=== PATIENT | male | born 1980 | race Caucasian/White ===

== ENCOUNTER → 2018-09-10 | Outpatient (CLI) | payer BC ==
--- NOTE | 2018-09-10 16:07 | PCVCIMAG ---
APPROVED REPORT Study performed: 09/10/2018 14:45:44 Exam: Stress Echocardiogram Indication: Hyperlipidemia, Hypertension, elevated calcium score Patient Location: Echo lab Stress Nurse: Krystal Cedillo RN Status: routine Ht: 5 ft 8 in HR: 87 bpm BP: 122/80 mmHg Rhythm: NSR Medical History Medical History: Hyperlipidemia, HTN Exercise History: Physically active Procedure The patient underwent an Exercise Stress Test using the Jaswant Protocol. Blood pressure, heart rate, and EKG were monitored. An Echocardiogram was performed by field technician in four stages in quad fashion. At peak stress, four selected images were obtained and placed side by side with resting images for comparison. Stress Test Details Stress Test: Exercise stress testing was performed using a Jaswant protocol. HR Resting HR: 87 bpmMax Heart Rate (APMHR): 181 bpm Max HR Achieved: 173 bpmTarget HR (85% APMHR): 153 bpm % of APMHR: 95 Recovery HR: 110 bpm HR response to stress: Normal HR response to stress BP Resting BP: 122/80 mmHg Max BP: 176/82 mmHg Recovery BP: 144/84 mmHg BP response to stress: Normal blood pressure response to stress. ECG Resting ECG: Sinus Rhythm Stress ECG: Sinus Rhythm ST Change: Normal Maximum ST Deviation: 0 mm Arrhythmia: rare VPC's Recovery ECG: Sinus Rhythm Recovery ST Change: Normal Recovery ST Deviation: 0 mm Recovery Arrhythmia: None Clinical Reason for Termination: Maximal effort Exercise duration: 15 min sec Highest Stage Achieved: Stage 6: 5.5 mph at 20% grade. Exercise capacity: 17.20 METs Overall Exercise Capacity for Age: Excellent Angina Score: None Stress ECG Conclusion Clinical: Non-ischemic ECG: Non-ischemic Key Treadmill Score is 15.0 which is Low risk. Pre-Stress Echo The resting Echocardiogram showed normalnormal left ventricular contractility with an estimated Ejection Fraction of about 55-60%. Normal wall motion in all segments on baseline images. Post-Stress Echo The stress Echocardiogram showed normal left ventricular contractility with an estimated Ejection Fraction of about 60-65%. Clinical No clinical or ECG evidence for ischemia. Conclusion Clinical Response: Non-ischemic Exercise Capacity: Superior Stress ECG Response: Non-ischemic Stress Echo Images: Non-ischemic The left ventricle is normal in size and wall thickness in both the rest and stress images. Normal stress echocardiogram with maximal exercise stress. Other Information Study Quality: Good <Conclusion> The left ventricle is normal in size and wall thickness in both the rest and stress images. Normal stress echocardiogram with maximal exercise stress.
== END | disposition home or self-care (01) ==
LOC: PCVCIMAG 14:31
PROVIDERS: ATTEND Family Medicine
DX: I10 Essential (primary) hypertension (principal); R93.1 Abnormal findings on diagnostic imaging of heart and coronary circulation; E78.5 Hyperlipidemia, unspecified
CPT/HCPCS: 93325; 93351